=== PATIENT | female | born 1990 | race African-American/Black ===

== ENCOUNTER 2016-06-28 23:34 | Inpatient (IN) | payer OTHER ==
[~2016-06-28] VITALS: Ht 157.5 cm; Wt 81.8 kg
[~2016-06-28 23:34] MED LIST: HEMOCYTE324 MG PO; IBUPROFEN800 MG PO; Motrin PO
[2016-06-29] VITALS (10 sets, daily range): BP systolic 111–132; BP diastolic 66–82
[2016-06-29 00:50] LABS: BASOPHIL COUNT 0.1 K/uL (0-0.1); EOSINOPHIL (%) 2.7 % (0-5); EOSINOPHIL COUNT 0.4 K/uL (0-0.3); HEMATOCRIT 35.1 % (36.0-46.0); IMMATURE GRANULOCYTE COUNT 0.2 K/uL; LYMPHOCYTE COUNT 2.8 K/uL (1.0-2.8); MCH 26.8 PG (29.0-34.0); MCHC 31.9 G/DL (30.0-36.0); MEAN PLAT.VOLUME 10.6 uM^3 (9.5-12.4); MONOCYTE (%) 5.9 % (3-12); MONOCYTE COUNT 0.9 K/uL (0-0.8); PLATELET COUNT 292 K/uL (156-360); RBC DIS.WIDTH-CV 13.3 % (11.8-14.6); RBC DIS.WIDTH-SD 40.8 % (39-53); RED BLOOD COUNT 4.18 M/uL (3.80-5.20)
[2016-06-29 00:51] LABS: ADD MIUA? YES; BILIRUBIN NEGATIVE; BLOOD NEGATIVE; COLOR YELLOW ((YELLOW)); GLUCOSE (STRIP) NEGATIVE; KETONES 20; LEUKOCYTES LARGE; NITRITE NEGATIVE; PROTEIN (STRIP) NEGATIVE; SPECIFIC GRAVITY 1.017 (1.000-1.030); UROBILINOGEN 0.2 MG/DL (0.2-1.0)
[2016-06-29 00:51] LABS: WHITE BLOOD COUNT 15.3 K/uL (4.1-10.2)
[2016-06-29 01:12] LABS: RED BLOOD CELLS NONE SEEN /HPF (0-5)
[2016-06-29 01:13] LABS: BACTERIA 1+ /HPF; CASTS NONE SEEN /LPF; EPITHELIAL CELLS RARE /HPF; MUCUS RARE /LPF; UCUL ADDED? NO
[2016-06-29 03:07] LABS: AMPHETAMINES QUANT VALUE 0 NG/ML; BARBITUATES QUANT VALUE 0 NG/ML; BENZODIAZEPINES QUANT VALUE 0 NG/ML; BENZODIAZEPINES, URINE SCREEN Negative (200 ng/mL); MARIJUANA QUANT VALUE 0 NG/ML; OPIATES QUANTITATIVE VALUE 0 NG/ML; PHENCYCLIDINE QUANT VALUE 0 NG/ML
[2016-06-29] MEDS ORDERED: EXPECTA PRENAT1 EACH PO (09:51)
[2016-06-29 12:24] LABS: POINT-OF-CARE METER ID UU13113770
[2016-06-29 20:34] LABS: CANDIDA DNA PROBE NEGATIVE; GARDNERELLA DNA PROBE POSITIVE; INTERNAL CONTROL VALID? YES
[2016-06-30 03:16] VITALS: BP 128/68
[2016-06-30 06:44] LABS: EOSINOPHIL (%) 0.3 % (0-5); EOSINOPHIL COUNT 0.1 K/uL (0-0.3); HEMATOCRIT 33.6 % (36.0-46.0); IMMATURE GRANULOCYTE (%) 0.8 % (0.0-0.7); IMMATURE GRANULOCYTE COUNT 0.2 K/uL; INSTRUMENT ABS NEUTROPHIL CT 15.4 K/uL; LYMPHOCYTE COUNT 2.4 K/uL (1.0-2.8); MCH 26.6 PG (29.0-34.0); MCHC 31.5 G/DL (30.0-36.0); MCV 84.2 FL (83-99); MONOCYTE (%) 6.2 % (3-12); MONOCYTE COUNT 1.2 K/uL (0-0.8); NEUTROPHIL (%) 80.1 % (45-76); NEUTROPHIL COUNT 15.4 K/uL (1.8-6.4); PLATELET COUNT 268 K/uL (156-360); RBC DIS.WIDTH-CV 13.4 % (11.8-14.6); RBC DIS.WIDTH-SD 41.1 % (39-53); RED BLOOD COUNT 3.99 M/uL (3.80-5.20); WHITE BLOOD COUNT 19.2 K/uL (4.1-10.2)
[2016-06-30 07:35] VITALS: BP 125/76
[2016-06-30 10:50] VITALS: BP 123/66
[2016-06-30 14:36] VITALS: BP 124/67
[2016-06-30 19:32] VITALS: BP 130/82
[2016-06-30 22:02] VITALS: BP 136/87
[2016-07-01 02:29] VITALS: BP 119/69
[2016-07-01 07:44] VITALS: BP 126/82
[2016-07-01] MEDS ORDERED: IBUPROFEN800 MG PO (08:29)
[2016-07-01] MEDS ORDERED: ENDOCET 5-3251 EACH PO (08:29)
[2016-07-01] MEDS ORDERED: BREAST PUMP MC (08:32)
[2016-07-01 12:25] LABS: CHLAMYDIA TRACHOMATIS NEGATIVE; NEISSERIA GONORRHOEAE NEGATIVE
== END 2016-07-01 10:17 | disposition home or self-care (01) | DRG 765 ==
LOC: LDRP-OP → 2WEST 23:35 → LDRP-OP 10-07 16:24
PROVIDERS: Advanced Practice Midwife; Obstetrics & Gynecology
PROC: 10D00Z0 Extraction of Products of Conception, High, Open Approach (ICD-10-PCS; principal; 2016-06-29)
DX: O26.873 Cervical shortening, third trimester (principal); O60.14X0 Preterm labor third trimester with preterm delivery third trimester, not applicable or unspecified; O40.3XX0 Polyhydramnios, third trimester, not applicable or unspecified; O32.2XX0 Maternal care for transverse and oblique lie, not applicable or unspecified; O69.81X0 Labor and delivery complicated by cord around neck, without compression, not applicable or unspecified; Z37.0 Single live birth; Z3A.30 30 weeks gestation of pregnancy; O99.214 Obesity complicating childbirth; E66.9 Obesity, unspecified; Z68.32 Body mass index [BMI] 32.0-32.9, adult
CPT/HCPCS: 76805; 80306 90; 81003; 82948; 85025; 86850; 86900; 86901; 87081; 87480; 87491; 87510; 87591; 87653; 87660; 88307; G0378; J0690; J0702; J2274; J7120

== ENCOUNTER 2017-06-07 23:47 | Inpatient (IN) | payer OTHER ==
[~2017-06-07] VITALS: Ht 157.5 cm; Wt 77.2 kg
[~2017-06-07 23:47] MED LIST changes: +BREAST PUMP MC; +ENDOCET 5-3251 EACH PO; +EXPECTA PRENAT1 EACH PO
[2017-06-08 00:23] LABS: HEMATOCRIT 37.7 % (36.0-46.0); HEMOGLOBIN 12.3 G/DL (11.9-15.5); MCH 28.2 PG (29.0-34.0); MCHC 32.6 G/DL (30.0-36.0); MCV 86.5 FL (83-99); PLATELET COUNT 295 K/uL (156-360); RBC DIS.WIDTH-CV 14.1 % (11.8-14.6); RBC DIS.WIDTH-SD 44.6 % (39-53); RED BLOOD COUNT 4.36 M/uL (3.80-5.20); WHITE BLOOD COUNT 8.6 K/uL (4.1-10.2)
[2017-06-08 00:34] LABS: ALBUMIN 4.3 g/dL (3.2-4.8); CHLORIDE 108 mEq/L (99-109); POTASSIUM 3.7 mEq/L (3.7-5.4); SODIUM 139 mEq/L (136-147)
[2017-06-08 00:36] LABS: GLUCOSE 76 mg/dL (70-99); TOTAL PROTEIN 7.7 g/dL (6.4-8.3)
[2017-06-08 00:38] LABS: TOTAL BILIRUBIN 0.3 mg/dL (0.0-1.0)
[2017-06-08 00:40] LABS: ALKALINE PHOSPHATASE 75 IU/L (3-129); CREATININE 0.8 mg/dL (0.6-1.3); GFR ESTIMATE (CALCULATED) > 59 mL/min/
[2017-06-08 00:41] LABS: UREA NITROGEN (BUN) 15 mg/dL (9-23)
[2017-06-08 00:42] LABS: AST (GOT) 16 IU/L (2-34)
[2017-06-08 00:43] LABS: ALT (GPT) 15 IU/L (3-49)
[2017-06-08 00:48] LABS: QUANTITATIVE HCG < 4.0 MIU/ML
[2017-06-08 02:49] LABS: APPEARANCE SL.HAZY ((CLEAR)); BILIRUBIN NEGATIVE; BLOOD NEGATIVE; COLOR YELLOW ((YELLOW)); GLUCOSE (STRIP) NEGATIVE; KETONES NEGATIVE; LEUKOCYTES TRACE; NITRITE NEGATIVE; PROTEIN (STRIP) NEGATIVE; SPECIFIC GRAVITY 1.045 (1.000-1.030); UROBILINOGEN 0.2 MG/DL (0.2-1.0)
[2017-06-08 02:53] LABS: BACTERIA RARE /HPF; EPITHELIAL CELLS 2+ /HPF; MUCUS TRACE /LPF; RED BLOOD CELLS 0-5 /HPF (0-5); UCUL ADDED? NO; WHITE BLOOD CELLS 0-5 /HPF (0-5)
[2017-06-08 03:39] VITALS: BP 124/88
[2017-06-08 07:31] VITALS: BP 134/82
[2017-06-08 11:37] VITALS: BP 127/84
[2017-06-08] MEDS ORDERED: OXYCODONE HCL5 MG PO (14:25)
[2017-06-08 16:22] VITALS: BP 117/75
[2017-06-08 19:31] VITALS: BP 123/71
[2017-06-08 23:24] VITALS: BP 107/65
[2017-06-09 07:26] VITALS: BP 130/81
[2017-06-09] MEDS ORDERED: ASCORBIC ACID100 MG PO (10:33)
[2017-06-09] MEDS ORDERED: HYDROCORTISONE30 G1 TP (10:34)
== END 2017-06-09 16:52 | disposition home or self-care (01) | DRG 355 ==
LOC: EME 23:47 → ENRESERV 06-08 02:40 → 3EAST 06-08 02:40 → EDOF 06-08 02:40 → ENRESERV 06-08 02:54 → 3EAST 06-08 03:28
PROC: 0WUF0JZ Supplement Abdominal Wall with Synthetic Substitute, Open Approach (ICD-10-PCS; principal; 2017-06-08)
DX: K43.6 Other and unspecified ventral hernia with obstruction, without gangrene (principal); K42.0 Umbilical hernia with obstruction, without gangrene; K59.00 Constipation, unspecified; M54.9 Dorsalgia, unspecified; E66.9 Obesity, unspecified; Z68.31 Body mass index [BMI] 31.0-31.9, adult; Z87.891 Personal history of nicotine dependence
CPT/HCPCS: 74177; 80053; 81003; 83605; 84702; 85027; 90686; 99281; 99285; C1781; J0330; J0690; J1100; J1170; J2250; J2270; J2310; J2405; J2765; J3010; J7030; S0020